=== PATIENT | female | born 1995 | race African-American/Black ===

== ENCOUNTER 2022-04-07 07:19 | Inpatient (IN) | payer OTHER ==
[~2022-04-07] VITALS: Ht 160 cm; Wt 101.2 kg
[2022-04-07 08:03] LABS: HCT 34.4 % (37.0-47.0); HGB 11.3 g/dl (12.5-16.0); MCH 29.4 pg (25.0-31.0); MCHC 32.8 g/dL (32.0-36.0); MCV 89.6 fL (78.0-100.0); MPV 9.4 fL (6.0-9.5); RBC 3.84 M/uL (4.20-5.40); RDW 13.7 % (11.5-14.0); WBC 6.1 K/uL (4.0-10.5)
[2022-04-08 06:29] LABS: MCH 29.3 pg (25.0-31.0); MCHC 32.4 g/dL (32.0-36.0); MCV 90.4 fL (78.0-100.0); MPV 9.5 fL (6.0-9.5); RBC 3.76 M/uL (4.20-5.40); RDW 13.6 % (11.5-14.0); WBC 7.8 K/uL (4.0-10.5)
== END 2022-04-09 12:21 | disposition home or self-care (01) | DRG 788 ==
LOC: UNDOADMIN 07:19 → FOB 07:19
PROVIDERS: ADMIT Obstetrics & Gynecology
PROC: 10D00Z1 Extraction of Products of Conception, Low, Open Approach (ICD-10-PCS; principal; 2022-04-07 11:00)
DX: O34.211 Maternal care for low transverse scar from previous cesarean delivery (principal); Z37.0 Single live birth; Z3A.39 39 weeks gestation of pregnancy; O99.214 Obesity complicating childbirth; O99.02 Anemia complicating childbirth; O99.344 Other mental disorders complicating childbirth; F41.9 Anxiety disorder, unspecified; F32.A Depression, unspecified; O99.334 Smoking (tobacco) complicating childbirth; F17.200 Nicotine dependence, unspecified, uncomplicated; Z79.82 Long term (current) use of aspirin; Z79.899 Other long term (current) drug therapy; Z88.5 Allergy status to narcotic agent
CPT/HCPCS: 36415; 82947; 86850; 86900; 86901; 87088; J0456; J0690; J1885; J2274; J2370; J2405; J7050; J7120